=== PATIENT | female | born 1985 | race Caucasian/White ===

== ENCOUNTER 2017-02-20 09:23 | Emergency (ER) | payer MEDICAID, OTHER ==
[~2017-02-20] VITALS: Ht 167.6 cm; Wt 50.0 kg
[~2017-02-20 09:23] MED LIST: ALBU6.7H INH; AMOX875 PO; CORTIS10A LEFT EAR; DOXY100T PO; MMW SSP; PRED20 PO; TYLE500T PO; ZOFR4TAB3 SL
[2017-02-20 09:25] VITALS: BP 115/65; PULSE 82; RESP 20; TEMP 97.6; O2SAT 100
--- NOTE | 2017-02-20 10:26 | PD ---
HPI Chief Complaint: Dizziness Time Seen by Provider: 10:21 Travel History International Travel<30 days: No Contact w/Intl Traveler<30days: No Traveled to known affect area: No History of Present Illness HPI Patient is a 31-year-old female presenting to the chart for evaluation of dizziness. Patient states it started in the middle of the night, he continued be present upon awakening this morning. She states that she is mildly nauseated due to the dizziness. Patient reports having head congestion and right ear pressure. She has a history of the same. She denies any fever, chills, chest pain, shortness of breath, vomiting, diarrhea. Her last menstrual period ended 2 days ago, she denies any significant past medical history or surgical history. She has no primary care provider. [facility] Past Medical History Diminished Hearing: No Headaches: Yes Neurologic: Yes (vertigo) Reproductive: Yes Tetanus Vaccination: > 5 Years Influenza Vaccination: No ?: Not LMP: 02/16/17 Past Surgical History Surgical History: No Previous Surgery Social History Alcohol Use: No Tobacco Use: No Substance Use: No Allergies-Medications (Allergen,Severity, Reaction): Coded Allergies: Ibuprofen (Verified Allergy, Severe, SWELLING, ITCHING, 02/20/17) Reported Meds & Prescriptions Reported Meds & Active Scripts Active No Active Prescriptions or Reported Medications Review of Systems Except as stated in HPI: all other systems reviewed are Neg General / Constitutional: No: Fever, Chills Eyes: No: Diploplia, Blurred Vision, Visual changes HENT: Positive: Congestion, Earache (pressure in right ear), No: Headaches Cardiovascular: No: Chest Pain or Discomfort, Palpitations, Diaphoresis Respiratory: No: Shortness of Breath Gastrointestinal: Positive: Nausea, No: Vomiting, Diarrhea, Abdominal Pain Neurologic: Positive: Dizziness, No: Weakness, Syncope, Focal Abnormalities Physical Exam Narrative GENERAL: Thin, well-developed, alert female. Resting comfortably in no acute distress. SKIN: Focused skin assessment warm/dry. HEAD: Atraumatic. Normocephalic. EYES: Pupils equal and round. No scleral icterus. No injection or drainage. ENT: No nasal bleeding or discharge. Mucous membranes pink and moist. Right tympanic membrane is dull, cloudy. No erythema noted. NECK: Trachea midline. No JVD. CARDIOVASCULAR: Regular rate and rhythm. No murmur appreciated. RESPIRATORY: No accessory muscle use. Clear to auscultation. Breath sounds equal bilaterally. GASTROINTESTINAL: Abdomen soft, non-tender, nondistended. Hepatic and splenic margins not palpable. MUSCULOSKELETAL: No obvious deformities. No clubbing. No cyanosis. No edema. NEUROLOGICAL: Awake and alert. No obvious cranial nerve deficits. Motor grossly within normal limits. Normal speech. PSYCHIATRIC: Appropriate mood and affect; insight and judgment normal. Data Data Last Documented VS Vital Signs Date Time Temp Pulse Resp B/P Pulse Ox O2 Delivery O2 Flow Rate FiO2 02/20/17 10:27 76 16 100/63 77 16 102/64 79 18 101/65 02/20/17 09:45 100 Room Air 02/20/17 09:25 97.6 Orders Meclizine (Antivert) (02/20/17 10:30) Orthostatic Vital Signs (02/20/17 10:20) Ondansetron Odt (Zofran Odt) (02/20/17 10:30) MDM Medical Decision Making Medical Screen Exam Complete: Yes Emergency Medical Condition: Yes Interpretation(s) Vital Signs Date Time Temp Pulse Resp B/P Pulse Ox O2 Delivery O2 Flow Rate FiO2 02/20/17 09:45 17 100 Room Air 02/20/17 09:25 97.6 82 20 115/65 100 Room Air Differential Diagnosis Effusion versus sinusitis versus otitis media versus vertigo versus other Narrative Course Patient is a 31-year-old female presenting to emergency room for evaluation of dizziness that started in the middle the night and was present upon awakening morning. Patient has history of the same. Patient states in the past it has resolved on its own, she would lay in bed until the episode resolved itself. Patient be given meclizine and Zofran now. Vital signs are stable, she is neurologically intact. Orthostatic vital signs are normal. Patient will be discharged home with meclizine, Zofran, Flonase, Sudafed. She was educated regarding the Maru maneuver. She is encouraged to follow-up with her primary doctor. She was advised to return to emergency department immediately for any new or worsening symptoms. Patient verbalized understanding of these instructions. Patient is stable for discharge. Diagnosis Primary Impression: Vertigo Referrals: Primary Care Physician Patient Instructions: Benign Paroxysmal Positional Vertigo (ED), Dizziness (ED) , General Instructions Additional Instructions: Follow-up with your primary doctor Return to emergency department immediately for any new or worsening symptoms Take medications as directed Med/Other Pt SpecificInfo: Prescription(s) given Scripts Pseudoephedrine (Sudafed)30 Mg Tab30 Mg PO Q6H PRN (NASAL CONGESTION) 5 Days Ref 0 Prov:Gali Soto 02/20/17 Fluticasone Nasal [place] 50 Mcg/Act [id number] Mcg EACH NARE DAILY #1 BOTTLE Ref 0 50 mcg/spray Prov:Gali Soto 02/20/17 Ondansetron Odt (Zofran Odt)4 Mg Tab4 Mg SL Q6HR PRN (Nausea/Vomiting) 5 Days Ref 0 Prov:Gali Soto 02/20/17 Meclizine 25 Mg Tab25 Mg PO TID PRN (VERTIGO) 10 Days Ref 0 Prov:Gali Soto 02/20/17 Disposition: 01 DISCHARGE HOME Condition: Stable Gali Soto Feb 20, 2017 10:26
[2017-02-20 10:27] VITALS: BP_SYST 100; BP_SYST 101; BP_SYST 102; BP_DIAS 63; BP_DIAS 64; BP_DIAS 65; RESP 16; RESP 18
[2017-02-20] MEDS ORDERED: ONDANSETRON ODT 4 MG TAB PO ONE (10:30)
[2017-02-20] MEDS ORDERED: MECLIZINE HCL 25 MG TAB PO ONE (10:30)
[2017-02-20] MEDS ORDERED: FLUT50SP EACH NARE (11:10)
[2017-02-20] MEDS ORDERED: MECL-62 PO (11:10)
[2017-02-20] MEDS ORDERED: SUDA30TA2 PO (11:10)
[2017-02-20] MEDS ORDERED: ZOFR4TAB3 SL (11:10)
[2017-02-20 11:39] VITALS: BP 116/71; TEMP 97.8
== END 2017-02-20 11:39 | disposition home or self-care (01) ==
LOC: NEPD 09:23
DX: R42 Dizziness and giddiness (principal); R11.0 Nausea
CPT/HCPCS: 99283

== ENCOUNTER 2017-07-24 11:44 | Emergency (ER) | payer MEDICAID ==
[~2017-07-24] VITALS: Ht 167.6 cm; Wt 50.0 kg
[~2017-07-24 11:44] MED LIST changes: -ALBU6.7H INH; -AMOX875 PO; -CORTIS10A LEFT EAR; -DOXY100T PO; +FLUT50SP EACH NARE; +MECL-62 PO; -MMW SSP; -PRED20 PO; +SUDA30TA2 PO; -TYLE500T PO
[2017-07-24 11:47] VITALS: BP 151/81; PULSE 102; RESP 18; TEMP 98.1; O2SAT 100
--- NOTE | 2017-07-24 11:54 | PD ---
HPI . Left buttock skin infection for 4 days Chief Complaint: Lump, Cyst, Hernia Time Seen by Provider: 11:54 Travel History International Travel<30 days: No Contact w/Intl Traveler<30days: No Traveled to known affect area: No History of Present Illness HPI 31-year-old female with no significant past medical history here with complaints of a lesion that has been on her buttocks for the past 4 days. Patient says that it initially started with small pustule that was itchy, however it started to get larger and a little bit more red. She denies any fever or chills. She does admit to frequently scratching. Denies . PFSH Past Medical History Diminished Hearing: No Headaches: Yes Neurologic: Yes (vertigo) Reproductive: Yes ?: Not Social History Alcohol Use: No Tobacco Use: No Substance Use: No Allergies-Medications (Allergen,Severity, Reaction): Coded Allergies: ibuprofen (Verified Allergy, Severe, SWELLING, ITCHING, 07/24/17) Reported Meds & Prescriptions Reported Meds & Active Scripts Active Bactrim DS (Sulfamethoxazole-Trimethoprim) 800-160 Mg Tab 1 Tab PO BID Sudafed (Pseudoephedrine HCl) 30 Mg Tab 30 Mg PO Q6H PRN 5 Days Fluticasone Nasal [place] 50 Mcg/Act Naspr 100 Mcg EACH NARE DAILY 50 mcg/spray Zofran Odt (Ondansetron Odt) 4 Mg Tab 4 Mg SL Q6HR PRN 5 Days Meclizine (Meclizine HCl) 25 Mg Tab 25 Mg PO TID PRN 10 Days Review of Systems General / Constitutional: No: Fever Eyes: No: Visual changes HENT: No: Headaches Cardiovascular: No: Chest Pain or Discomfort Respiratory: No: Shortness of Breath Gastrointestinal: No: Abdominal Pain Genitourinary: No: Dysuria Musculoskeletal: No: Pain Skin: Positive Other (buttocks lesion), No Rash Neurologic: No: Weakness Psychiatric: No: Depression Endocrine: No: Polydipsia Hematologic/Lymphatic: No: Easy Bruising Physical Exam Narrative GENERAL: AAO x 3, no acute distress, Well-nourished, well-developed patient. SKIN: Warm and dry. No visible rashes or bruising. Left buttocks small area of induration measuring approximately 1.5 cm with a surrounding zone of inflammation approximately extending an additional centimeter. There is no fluctuance or drainage present. This is not a drainable abscess. HEAD: Normocephalic and atraumatic. EYES: No scleral icterus. No injection or drainage. ENT: No nasal drainage noted. Mucous membranes pink. Airway patent. NECK: Supple, trachea midline. No JVD. No Lymphadenopathy CARDIOVASCULAR: Regular rate and rhythm without murmurs, gallops, or rubs. RESPIRATORY: Breath sounds equal bilaterally. No accessory muscle use. No rhonchi or rales. GASTROINTESTINAL visual inspection normal EXTREMITIES: No cyanosis or edema. BACK: No obvious deformity. NEURO: CN II-12 intact, PSYCH: AAO x 3, normal affect. Data Data Last Documented VS Vital Signs Date Time Temp Pulse Resp B/P (MAP) Pulse Ox O2 Delivery O2 Flow Rate FiO2 07/24/17 12:08 07/24/17 11:47 98.1 102 18 100 Room Air MDM Medical Decision Making Medical Screen Exam Complete: Yes Emergency Medical Condition: Yes Medical Record Reviewed: Yes Differential Diagnosis cellulitis, less likely abscess, less likely shingles Narrative Course 31 yr old female here with a localized left buttocks cellulitis. This is not a drainable abscess. I do not recommend further workup or treatment as I do not suspect widespread infection. HR on exam 92 I have provided patient with Bactrim. I recommend f/u. Return to the ED for worsening symptoms. Patient verbalized understanding of instructions, questions were answered, and thanked me for their care. I advised them if their condition worsens, please return to the nearest emergency room for further care. Diagnosis Primary Impression: Cellulitis of buttock, left Patient Instructions: General Instructions Additional Instructions: Keep area clean and dry. Watch for signs of infection: fever, redness, swelling, warmth, pus or drainage , red streaks around the cut, and increased pain from the area. Please return to emergency department if your symptoms return or worsen. Follow up with your primary care provider. Take medications as prescribed. Med/Other Pt SpecificInfo: Prescription(s) given Scripts Sulfamethoxazole-Trimethoprim (Bactrim DS) 800-160 Mg Tab 1 TAB PO BID for Infection, #20 TAB 0 Refills Prov: Giovani Gamble MD 07/24/17 Disposition: 01 DISCHARGE HOME Condition: Stable Chayito Delaney Jul 24, 2017 11:54
[2017-07-24] MEDS ORDERED: BACT800T5 PO (11:57)
== END 2017-07-24 12:12 | disposition home or self-care (01) ==
LOC: NEPK 11:44
DX: L03.317 Cellulitis of buttock (principal)
CPT/HCPCS: 99283

== ENCOUNTER 2017-07-27 18:29 | Emergency (ER) | payer SELFPAY ==
[~2017-07-27] VITALS: Ht 167.6 cm; Wt 48.0 kg
[~2017-07-27 18:29] MED LIST changes: +BACT800T5 PO
[2017-07-27 18:31] VITALS: BP 120/64; PULSE 86; RESP 20; TEMP 98.3; O2SAT 100
[2017-07-27] MEDS ORDERED: CLEO300C2 PO (20:33)
--- NOTE | 2017-07-27 20:38 | PD ---
HPI Chief Complaint: Skin Problem Time Seen by Provider: 20:27 Travel History International Travel<30 days: No Contact w/Intl Traveler<30days: No Traveled to known affect area: No History of Present Illness HPI 31-year-old white female presents to emergency department with a abscess to her left buttocks. She was seen in the emergency department last week and was given prescription for Bactrim. She states that the area is opened up and started to drain. She is also now developed a second lesion on her right buttocks. Symptoms are moderate. She denies any fever or chills. She states actually the pain is improved after it open. History of skin infections in the past. PFSH Past Medical History Narrative Medical Abscesses Diminished Hearing: No Headaches: Yes Neurologic: Yes (vertigo) Reproductive: Yes Immunizations Current: Yes Tetanus Vaccination: Unknown Influenza Vaccination: No ?: Not : 4 Para: 3 Past Surgical History Other Surgery: Yes (TEETH REMOVED) Social History Alcohol Use: No Tobacco Use: No Substance Use: No Allergies-Medications (Allergen,Severity, Reaction): Coded Allergies: ibuprofen (Verified Allergy, Severe, SWELLING, ITCHING, 07/27/17) Reported Meds & Prescriptions Reported Meds & Active Scripts Active Cleocin (Clindamycin HCl) 300 Mg Cap 300 Mg PO Q6H 10 Days Bactrim DS (Sulfamethoxazole-Trimethoprim) 800-160 Mg Tab 1 Tab PO BID Review of Systems Except as stated in HPI: all other systems reviewed are Neg Physical Exam Narrative GENERAL: This is a well-nourished, well-developed patient, in no apparent distress. Patient's examined with Jackie the nurse present. SKIN: Patient has an open draining abscess to her left buttocks. This measures 2 x 2 centimeters. There is no surrounding cellulitis. Patient has good granulation tissues centrally. There is also a small 1 cm developing abscess to the right buttocks. Ecchymoses or lesions. Warm and dry. HEAD: Atraumatic. Normocephalic. EYES: PERRL, EOMI, no discharge or injection. No scleral icterus. EARS: Clear NOSE: Nasal turbinates appear normal. THROAT: Mucosa pink and moist. Airway patent. NECK: Trachea midline. supple, moves head freely. LUNGS: Clear to auscultation. CV: Regular in rhythm. ABDOMEN: Soft nontender. EXT: No clubbing cyanosis or edema. Data Data Last Documented VS Vital Signs Date Time Temp Pulse Resp B/P (MAP) Pulse Ox O2 Delivery O2 Flow Rate FiO2 07/27/17 18:31 98.3 86 20 120/64 (82) 100 Room Air MDM Medical Decision Making Medical Screen Exam Complete: Yes Emergency Medical Condition: Yes Medical Record Reviewed: Yes Differential Diagnosis MDM: High Differential diagnoses: Abscess, folliculitis, cellulitis, lymphangitis, abrasion, contact dermatitis Narrative Course Patient has an open draining abscess to her left buttocks with a new one developing on her right buttocks. We will add and clindamycin. Diagnosis Primary Impression: Left buttock abscess Patient Instructions: General Instructions Additional Instructions: Rest. Elevation. keep clean and dry. Sits baths 3 times daily Daily wound care with soap, water and Neosporin. Continue Bactrim. Start clindamycin Follow-up with a primary care doctor in one week. Return to the ER for any problems. Med/Other Pt SpecificInfo: Prescription(s) given, Wound Care Scripts Clindamycin (Cleocin) 300 Mg Cap 300 MG PO Q6H for Infection for 10 Days, #40 CAP 0 Refills Prov: Jaswant Worthy MD 07/27/17 Disposition: 01 DISCHARGE HOME Condition: Stable Gabe Goodrich Jul 27, 2017 20:38
== END 2017-07-27 20:46 | disposition home or self-care (01) ==
LOC: NEPD 18:29
DX: L02.31 Cutaneous abscess of buttock (principal)
CPT/HCPCS: 99283

== ENCOUNTER 2017-10-28 20:19 | Emergency (ER) | payer OTHER ==
[~2017-10-28 20:19] MED LIST changes: +CLEO300C2 PO; -FLUT50SP EACH NARE; -MECL-62 PO; -SUDA30TA2 PO; -ZOFR4TAB3 SL
[2017-10-28 20:21] VITALS: BP 137/78; PULSE 97; RESP 16; TEMP 98.7; O2SAT 100
--- NOTE | 2017-10-28 20:55 | PD ---
HPI Chief Complaint: GI Complaint Time Seen by Provider: 20:39 Travel History International Travel<30 days: No Contact w/Intl Traveler<30days: No Traveled to known affect area: No History of Present Illness HPI 31-year-old female presents to the ED complaining of heartburn and a "acidic feeling" in the middle of her chest since Thursday. Patient states that she took her first dose of clindamycin and developed this burning in the middle of her chest. Patient says that she took the medication the next day as well and had the same feeling. Patient states that she has an acidic feeling that is worse when laying down. Patient states she has tried antacids and Pepcid without significant relief. Patient denies vomiting, nausea, abdominal pain, melena, hematochezia. Patient denies chronic medical issues or chronic medication use. Patient does not have a history of reflux. PFSH Past Medical History Diminished Hearing: No Headaches: Yes Neurologic: Yes (vertigo) Reproductive: Yes Immunizations Current: Yes ?: Not LMP: Now : 4 Para: 3 Past Surgical History Other Surgery: Yes (TEETH REMOVED) Social History Alcohol Use: No Tobacco Use: No Substance Use: No Allergies-Medications (Allergen,Severity, Reaction): Coded Allergies: ibuprofen (Verified Allergy, Severe, SWELLING, ITCHING, 07/27/17) Reported Meds & Prescriptions Reported Meds & Active Scripts Active No Active Prescriptions or Reported Medications Review of Systems Except as stated in HPI: all other systems reviewed are Neg Physical Exam Narrative GENERAL: Well-nourished, well-developed patient. SKIN: Focused skin assessment warm/dry. HEAD: Normocephalic. EYES: No scleral icterus. No injection or drainage. NECK: Supple, trachea midline. No JVD or lymphadenopathy. CARDIOVASCULAR: Regular rate and rhythm without murmurs, gallops, or rubs. RESPIRATORY: Breath sounds equal bilaterally. No accessory muscle use. GASTROINTESTINAL: Abdomen soft, non-tender, nondistended. MUSCULOSKELETAL: No cyanosis, or edema. BACK: Nontender without obvious deformity. No CVA tenderness. Data Data Last Documented VS Vital Signs Date Time Temp Pulse Resp B/P (MAP) Pulse Ox O2 Delivery O2 Flow Rate FiO2 10/28/17 21:45 10/28/17 20:21 98.7 97 16 100 Room Air Orders Orders Al-Mag Hy-Si 40-40-4 Mg/Ml Liq (Mag-Al P (10/28/17 21:00) Lidocaine 2% Viscous (Xylocaine 2% Visco (10/28/17 21:00) Electrocardiogram (10/28/17 ) Ed Discharge Order (10/28/17 21:42) [facility] Medical Decision Making Medical Screen Exam Complete: Yes Emergency Medical Condition: Yes Differential Diagnosis Gastritis, esophagitis, reflux Narrative Course 31-year-old female presents to the ED complaining of heartburn and a "acidic feeling" in the middle of her chest since Thursday. Patient states that she took her first dose of clindamycin and developed this burning in the middle of her chest. Patient says that she took the medication the next day as well and had the same feeling. Patient states that she has an acidic feeling that is worse when laying down. Patient states she has tried antacids and Pepcid without significant relief. Patient denies vomiting, nausea, abdominal pain, melena, hematochezia. Patient denies chronic medical issues or chronic medication use. Patient does not have a history of reflux. Vital signs stable. Physical exam essentially unremarkable. Maalox and lidocaine for GI cocktail. EKG and dispo pending as of transfer of care to Saul Dewey PA-C Diagnosis Primary Impression: GERD (gastroesophageal reflux disease) Qualified Codes: K21.0 - Gastro-esophageal reflux disease with esophagitis Referrals: [facility] Additional Instructions: Follow up with your primary care physician within 2-3 days. If your symptoms persist or worsen, return to the emergency department. Use Maalox per package instructions for your discomfort Scripts No Active Prescriptions or Reported Meds Disposition: 01 DISCHARGE HOME Condition: Stable Rosa Carpenter Oct 28, 2017 20:55
[2017-10-28] MEDS ORDERED: LIDOCAINE VISCOUS 2% SOLN 15 ML UDC SWISH-SWAL PRN (21:00)
[2017-10-28] MEDS ORDERED: ALUMINUM/MAGNESIUM/SIMETH 30 ML CUP PO ONE (21:00)
--- NOTE | 2017-10-28 21:45 | PD ---
Physical Exam Date Seen by Provider: Oct 28, 2017 Time Seen by Provider: 21:43 Narrative GENERAL: Well-developed, well-nourished in no acute distress. Nontoxic appearing. HEAD: Normocephalic, atraumatic. EYES: Pupils equal round and reactive. Extraocular motions intact. No scleral icterus. No injection or drainage. ENT: TMs clear without erythema. The external auditory canals clear. Nose: clear . Posterior pharynx is pink and moist. No tonsillar edema or exudate. Uvula midline. Airway patent. NECK: Trachea midline.Supple, nontender, moves head freely. No central bony tenderness or spasm. CARDIOVASCULAR: Regular rate and rhythm without murmurs, gallops, or rubs. RESPIRATORY: Clear to auscultation. Breath sounds equal bilaterally. No wheezes , rales, or rhonchi. GASTROINTESTINAL: Abdomen soft, non-tender, nondistended. No hepato-splenomegaly , or palpable masses. No guarding. EXTREMITIES: No clubbing, cyanosis, or edema. No joint tenderness, effusion, or edema noted. BACK: Nontender without deformity or crepitance. No flank tenderness. Data Data Last Documented VS Vital Signs Date Time Temp Pulse Resp B/P (MAP) Pulse Ox O2 Delivery O2 Flow Rate FiO2 10/28/17 20:21 98.7 97 16 137/78 (97) 100 Room Air Orders Orders Al-Mag Hy-Si 40-40-4 Mg/Ml Liq (Mag-Al P (10/28/17 21:00) Lidocaine 2% Viscous (Xylocaine 2% Visco (10/28/17 21:00) Electrocardiogram (10/28/17 ) Ed Discharge Order (10/28/17 21:42) [facility] Medical Record Reviewed: Yes Supervised Visit with KUNAL: No Interpretation(s) EKG shows NSR, no ST elevation or depression, and no arrhythmias. No significant T-wave inversions. Differential Diagnosis Differential diagnoses: Reflux, gastritis, pericarditis Narrative Course Patient's evaluation is unremarkable. Her EKG is normal. Her symptoms are of a reflux or gastritis. She is discharged with proton pump inhibitor. Diagnosis Primary Impression: GERD (gastroesophageal reflux disease) Qualified Codes: K21.0 - Gastro-esophageal reflux disease with esophagitis Referrals: [facility] Additional Instruction: Follow up with your primary care physician within 1 week. Take 2 Pepcid AC twice daily. If your symptoms persist or worsen, return to the emergency department. Use Maalox per package instructions for your discomfort Scripts No Active Prescriptions or Reported Meds Disposition: 01 DISCHARGE HOME Condition: Stable Gabe Goodrich Oct 28, 2017 21:44
--- NOTE | 2017-10-29 15:45 | EKG ---
Date Performed: 10/28/2017 Time Performed: 21:21:11 PTAGE: 31 years EKG: Sinus rhythm NORMAL ECG PREVIOUS TRACING : 08/17/2000 02.14 Compared to prior tracing no significant change DOCTOR: Tonny Tinajero Interpretating Date/Time 10/29/2017 15:44:57
== END 2017-10-28 21:48 | disposition home or self-care (01) ==
LOC: NEPK 20:19
DX: K21.9 Gastro-esophageal reflux disease without esophagitis (principal); Z88.6 Allergy status to analgesic agent
CPT/HCPCS: 93005

== ENCOUNTER 2018-08-18 19:02 | Inpatient (IN) ==
[2018-08-18] MEDS ORDERED: Sod Chloride 0.9% Inj 1,000 ML IV.SIG SCH (20:30)
[2018-08-18] MEDS ORDERED: Vancomycin Inj 1,000 MG in Sodium Chlor 0.9% Inj 250 ML IV.SIG ONE (20:30)
[2018-08-18 21:35] LABS: Baso % (Auto) 0.3 % (0.0-2.0); Eos # (Auto) 0.1 th/mm3 (0.0-0.4); Eos % (Auto) 0.5 % (0.0-4.0); Hematocrit 41.2 % (35.0-46.0); Hemoglobin 13.9 gm/dL (11.6-15.3); Lymph # (Auto) 1.4 th/mm3 (1.0-4.8); Lymph % (Auto) 12.8 % (9.0-44.0); Mean Corpuscular HGB Conc 33.8 % (32.0-36.0); Mean Corpuscular Hemoglobin 29.6 pg (27.0-34.0); Mean Corpuscular Volume 87.6 fL (80.0-100.0); Mono # (Auto) 0.9 th/mm3 (0.0-0.9); Mono % (Auto) 8.3 % (0.0-8.0); Neut # (Auto) 8.4 th/mm3 (1.8-7.7); Neut % (Auto) 78.1 % (16.0-70.0); Platelet Count 164 th/mm3 (150-450); Red Cell Distribution Width 13.6 % (11.6-17.2); White Blood Count 10.8 th/mm3 (4.0-11.0)
[2018-08-18 21:48] LABS: Calcium 8.6 mg/dL (8.5-10.1); Carbon Dioxide 26.7 meq/L (21.0-32.0); Potassium 3.2 meq/L (3.5-5.1)
--- NOTE | 2018-08-18 22:26 | ECG ---
Date Performed: 08/18/2018 Time Performed: 20:20:23 PTAGE: 32 years EKG: SINUS TACHYCARDIA ABNORMAL RHYTHM ECG PREVIOUS TRACING : 10/28/2017 21.21 No significant change from previous tracing noted. DOCTOR: Shawn Zamora Interpretating Date/Time 08/18/2018 22:24:56
--- NOTE | 2018-08-18 22:58 | CT ---
EXAM DATE: 08/18/2018 9:20 PM EDT AGE/SEX: 32 years / Female INDICATIONS: Right eye swelling fro six days. CLINICAL DATA: This is the patient's initial encounter. Patient reports that signs and symptoms have been present for 4 - 6 days and indicates a pain score of 5/10. MEDICAL/SURGICAL HISTORY: None. None. RADIATION DOSE: 41.56 CTDI (mGy) COMPARISON: No prior exams available for comparison. TECHNIQUE: Contiguous images in the axial and coronal planes were obtained using helical multirow de tector technique with 67 ml Omnipaque 350 (iohexol) nonionic water-soluble contrast as a single exam dose. Using automated exposure control and adjustment of the mA and/or kV according to patient size , radiation dose was kept as low as reasonably achievable to obtain optimal diagnostic quality images . DICOM format image data is available electronically for review and comparison. FINDINGS: Orbits: The orbital and infraorbital osseous structures are intact. The retroconal structures have a normal configuration. No radiopaque foreign bodies are seen. Nasal Bone: The nasal bone and maxillary spine are intact. Zygomatic Arches: Symmetric without evidence of fracture. Sinuses: The maxillary, ethmoid and frontal sinuses are intact. No air-fluid levels seen. Nasal Cavity: The nasal septum is intact and midline. The lacrimal ducts are intact. There is a con hannah bullosa configuration to the middle turbinates. Soft Tissues: There is right periorbital preseptal soft tissue swelling. No radiopaque foreign rosaura s seen. Intracranial: No intracranial air seen. Cribriform Plate: Grossly intact. Post Contrast: No abnormal areas of enhancement seen. CONCLUSION: Right periorbital preseptal soft tissue swelling. Electronically signed by: Garth Welch MD 08/18/2018 10:56 PM EDT
[2018-08-18] MEDS ORDERED: Clindamycin 900 mg/NS Premix 900 MG/50 ML PIGGYBACK IV.SIG ONE (23:44)
[2018-08-19] MEDS ORDERED: Bisacodyl 10 MG Supp RECTAL PRN (00:20)
--- NOTE | 2018-08-19 00:27 | ED ---
HPI General Chief complaint: Eye Problems Stated complaint: Eye complaint Time Seen by Provider: 08/18/18 21:04 Source: patient Mode of arrival: ambulatory Limitations: no limitations History of Present Illness HPI narrative: 32-year-old female presents to the emergency department by private transportation the care of her father for evaluation of progressively worsening redness and swelling of the soft tissue about the right eye affecting the right upper lid and right lower lid. Patient states symptoms began a few days ago with a sore on the lateral aspect of the right eye in the soft tissue area. Patient states that the area started to worsen and increase in size felt some subjective fever no chills denies any vision disturbance denies any change in vision no blurred vision double vision loss of vision and no eyeball pain on range of motion of the globe. Patient does wear eyeglasses. Patient states that she went to urgent care and was started on Bactrim but symptoms persisted so went to see her primary care provider who started her on doxycycline patient is taken 2 doses of the medication contacted her physician as she felt her symptoms were worsening of her to come to the emergency room for admission. Patient was seen by her primary care provider today who told her that she needed to come to the hospital to be admitted for IV antibiotics but the patient did not want to be admitted to the hospital so initially declined and had an appointment for tomorrow morning to see her primary but due to worsening of symptoms presents now for further evaluation. complaint: Reports rash and abscess/boil Onset (ago): day(s) Location: Reports face (Right face periorbital right eye) Severity: moderate Severity scale (1-10): 5 Quality: Reports burning, aching, dull and constant Pain Consistency: constant Relieving factors: none Exacerbating factors: palpation Context: Reports other ( right lateral face right lateral periorbital region.) Associated symptoms: Reports fever (Subjective) Treatments prior to arrival: Reports antibiotic (Bactrim and doxycycline) Related Data Home Medications Medication Instructions Recorded Confirmed doxycycline hyclate 100 mg PO BID 08/18/18 08/18/18 sulfamethoxazole-trimethoprim 1 tab PO Q12H 08/18/18 08/18/18 [Bactrim DS] Allergies Allergy/AdvReac Type Severity Reaction Status Date / Time ibuprofen Allergy Severe SWELLING, Verified 08/18/18 19:46 ITCHING Review of Systems ROS: all other systems reviewed are negative [facility] Medical History Medical History Abscess, eyelid (Acute) Surgical History Surgical History No history of previous surgery (Acute) Social History Social History Substance History: No History of Abuse Second Hand Smoke Exposure: No Smoking Status: Never smoker How Often Do You Have a Drink Containing Alcohol: Never Recent Travel in [facility] within the Last 8 Weeks: No Recent Out of Country Travel within the Last 8 Weeks: No Immunization History Tetanus Immunization: <5 Years Exam Narrative Exam Narrative: GENERAL: Well-nourished, well-developed patient. GCS 15. SKIN: Focused skin assessment warm/dry. HEAD: Normocephalic. EYES: No scleral icterus. No injection or drainage. Bilateral pupils equal round reactive to light extraocular muscles intact no gross hyphema no fluorescein uptake no dendritic changes no purulent drainage from the eye no conjunctival injection no ecchymosis. Attention right periorbital upper and lower lid edema erythema tenderness to palpation small area of scab without fluctuance or purulent drainage to the lateral aspect lateral periorbital region of the right eye. NECK: Supple, trachea midline. No JVD or lymphadenopathy. CARDIOVASCULAR: Increased regular rate and rhythm without murmurs, gallops, or rubs. RESPIRATORY: Breath sounds equal bilaterally. No accessory muscle use. GASTROINTESTINAL: Abdomen soft, non-tender, nondistended. MUSCULOSKELETAL: No cyanosis, or edema. BACK: Nontender without obvious deformity. No CVA tenderness. Course Initial Documented Vital Signs Temperature 99.2 F 08/18/18 19:39 Pulse Rate 120 H 08/18/18 19:39 Respiratory Rate 20 08/18/18 19:39 Blood Pressure 122/70 08/18/18 19:39 Pulse Oximetry 100 08/18/18 19:39 Last Documented Vital Signs Temperature 99.3 F 08/18/18 19:46 Pulse Rate 100 H 08/18/18 23:00 Respiratory Rate 18 08/18/18 23:00 Blood Pressure 112/68 08/18/18 23:00 Pulse Oximetry 100 08/18/18 23:00 Medical Decision Making [facility] Narrative Medical decision making narrative: 32-year-old female with several days of progressively worsening periorbital soft tissue swelling redness warmth and tenderness without purulent drainage no vision disturbance patient has been placed on Bactrim and doxycycline without improvement presents now for further evaluation. IV access obtained specimens collected and sent for resulting. Patient presumptively administered vancomycin 1 g IV piggyback Informed patient having erythematous reaction to vancomycin which was stopped. Suspect patient had Leandro reaction unable to immediately attend to the patient due to emergency with another patient. Symptoms improved quickly after discontinuing vancomycin Total white cell count is in normal range CT shows evidence of preseptal soft tissue swelling no abscess and lactic acid is normal heart rate has improved after IV fluids. Patient with 2 days of oral antibiotic with worsening symptoms concerning for failed outpatient therapy will continue patient on IV antibiotics and admit to medicine service patient's case discussed with on-call physician Dr. Barakat who request patient to be admitted to Dr. Orr service. Medical Screen Exam Complete: Yes Emergency Medical Condition: Yes Differential Diagnosis Differential Diagnosis: Periorbital abscess periorbital cellulitis preseptal cellulitis Medical Records Medical records reviewed: Yes I reviewed the patient's medical records. Lab Data Lab results reviewed: Yes I reviewed the patient's lab results. Result diagrams: 08/18/18 20:45 08/18/18 20:45 POC Results POC Urine Results Negative Lab Results 08/18/18 08/18/18 08/18/18 Range/Units 20:45 20:45 23:17 WBC 10.8 (4.0-11.0) th/mm3 RBC 4.70 (4.00-5.30) mil/mm3 Hgb 13.9 (11.6-15.3) gm/dL Hct 41.2 (35.0-46.0) % MCV 87.6 (80.0-100.0) fL MCH 29.6 (27.0-34.0) pg MCHC 33.8 (32.0-36.0) % RDW 13.6 (11.6-17.2) % Plt Count 164 (150-450) th/mm3 MPV 10.0 (7.0-11.0) fL Neut % (Auto) 78.1 H (16.0-70.0) % Lymph % (Auto) 12.8 (9.0-44.0) % [place] % (Auto) 8.3 H (0.0-8.0) % Eos % (Auto) 0.5 (0.0-4.0) % Baso % (Auto) 0.3 (0.0-2.0) % Neut # (Auto) 8.4 H (1.8-7.7) th/mm3 Lymph # (Auto) 1.4 (1.0-4.8) th/mm3 [place] # (Auto) 0.9 (0.0-0.9) th/mm3 Eos # (Auto) 0.1 (0.0-0.4) th/mm3 Baso # (Auto) 0.0 (0.0-0.2) th/mm3 WBC Differential . Differential Comment Auto diff final Sodium 139 (136-145) meq/L Potassium 3.2 L (3.5-5.1) meq/L Chloride 105 (98-107) meq/L Carbon Dioxide 26.7 (21.0-32.0) meq/L Anion Gap 7 (5-15) meq/L BUN 7 (7-18) mg/dL Creatinine 0.87 (0.50-1.00) mg/dL Estimated GFR 76 L (>89) mL/min Random Glucose 118 H (74-106) mg/dL Lactic Acid 1.3 (0.4-2.0) mmol/L Calcium 8.6 (8.5-10.1) mg/dL Imaging Data Radiologist's impression: Face CT 08/18/18 20:30 CONCLUSION: Right periorbital preseptal soft tissue swelling. ECG Data EKG Prior to Arrival: No Prior ECG tracings: not available for review Interpretation: EKG sinus tachycardia rate 105 normal axis and intervals no acute ST elevation injury pattern or ectopy noted Discharge Plan Discharge Disposition Patient Disposition: 30 Still Patient Discharge Condition Condition: Stable Discharge Details Diagnosis: Periorbital cellulitis of right eye Physicians Team ED Provider: Nadine Jacobo Primary Care Provider: Svetlana Temple Attending Provider: Ed Orr Discharge Interventions Interventions: Vital Signs Last Done: 08/18/18 23:00 Status ED Status: Admitted Observation Patient
[2018-08-19] MEDS: Acetaminophen 325 MG Tablet PO PRN ×2 (04:29→09:11)
[2018-08-19] MEDS: Clindamycin 900 mg/NS Premix 900 MG/50 ML PIGGYBACK IV.SIG SCH ×3 (08:58→23:05)
[2018-08-19] MEDS: Senna/Docusate Sodium 8.6/50 MG Tablet PO SCH ×2 (08:59→20:38)
--- NOTE | 2018-08-19 09:42 | P.HP ---
<Karishma Cortez W - Last Filed: 08/19/18 16:39> History of Present Illness Primary Care Physician: Svetlana Temple Chief Complaint: Left eye erythema and edema times 6 days History of Present Illness: This is a 32-year-old female patient with past medical history which includes sciatica, vitamin D deficiency and recurrent boils. Patient reports approximately 6 days ago she developed a pimple near her right eye she did try to pop it and since then the eyes become extremely swollen red and painful. Patient went to [facility] [place] and was prescribed cefazolin 500 mg 4 times daily times 10 days with Bactrim twice daily times 10 days. She is also been using warm compresses. Patient endorses low-grade fever 100.5. Patient was seen by primary care provider Dr. Temple 08/17/2018. Patient continued to have significant periorbital swelling and erythema which extended from the upper right eyelid and several centimeters laterally to the right eye. Antibiotics were switched to Keflex and doxycycline. Patient was rechecked 09/2018 by PCP and referred to emergency department for further evaluation and possibly IV antibiotics. Patient presented to the emergency department 08/18/2018 proximally 9 PM she was started on IV vancomycin and IV clindamycin. Patient unable to tolerate vancomycin, patient reports itching on scalp and back with vancomycin. Patient feels that the area around the eye has gotten, "a little better, " since she arrived last night. Patient reports the right eye area is no longer painful and the edema has decrease slightly. Patient denies changes in vision, blurry vision, double vision, difficulty with eye movement. Patient also denies chills nausea vomiting diarrhea constipation shortness of breath or chest pain PMH: sciatica, vitamin D deficiency and recurrent boils PSxH: Oral surgery for tooth extraction FMH: Reviewed and noncontributory Social history: has 4 children Denies EtOH use denies tobacco use denies illicit drug use - Diagnosis (1) Periorbital cellulitis of right eye Review of Systems All other systems reviewed negative except as stated in HPI PMFSH - History History Provided By: Patient - Medical History Medical History: Medical History (Last Updated 08/18/18 @ 19:45 by Triston Edmonds RN) Abscess, eyelid - Surgical History Surgical History: Surgical History (Last Updated 08/18/18 @ 19:45 by Triston Edmonds RN) No history of previous surgery - Tobacco History Second Hand Smoke Exposure: No Tobacco Use In Past 30 Days: No Smoking Status: Never smoker - Alcohol History How Often Do You Have a Drink Containing Alcohol: Monthly or less - Substance Use History Substance History: No History of Abuse - Travel History Recent Travel in the [place] Within the Last 8 Weeks: No Recent Travel Out of the Country Within the Last 8 Weeks: No - Immunization History Tetanus Immunization: <5 Years Medications and Allergies Allergies Allergy/AdvReac Type Severity Reaction Status Date / Time ibuprofen Allergy Severe SWELLING, Verified 08/18/18 19:46 ITCHING vancomycin Allergy Itching Verified 08/19/18 01:23 Home Medications Medication Instructions Recorded Confirmed Type doxycycline hyclate 100 mg PO BID 08/18/18 08/18/18 History sulfamethoxazole-trimethoprim 1 tab PO Q12H 08/18/18 08/18/18 History [Bactrim DS] Active Medications: Active Medications Acetaminophen (Tylenol) 650 mg PO Q4H PRN PRN Reason: Temp > 100.4 Last Admin: 08/19/18 09:11 Dose: 650 mg Al Hydroxide/Mg Hydroxide (Milk Of Magnesia Liq) 30 ml PO Q12H PRN PRN Reason: Mild Constipation Bisacodyl (Dulcolax Supp) 10 mg RECTAL DAILY PRN PRN Reason: SEVERE CONSITIPATION Sodium Chloride (Ns Inj) 1,000 mls @ 0 mls/hr IV.SIG BOLUS [facility] Last Infusion: 08/18/18 22:22 Dose: Infused Clindamycin/Sodium Chloride (Cleocin 900 Mg/Ns Premix) 900 mg in 50 mls @ 100 mls/hr IV.SIG Q8H PIA Stop: 08/20/18 00:29 Last Admin: 08/19/18 08:58 Dose: 100 mls/hr Lactulose (Lactulose Liq) 30 ml PO DAILY PRN PRN Reason: SEVERE CONSITIPATION Ondansetron HCl (Zofran Inj) 4 mg IV.PUSH Q6H PRN PRN Reason: NAUSEA OR VOMITING Senna/Docusate Sodium (Ashlee-Colace) 1 tab PO BID PIA Last Admin: 08/19/18 08:59 Dose: 1 tab Sennosides (Senokot) 17.2 mg PO Q12H PRN PRN Reason: Moderate Constipation Exam Vital signs: Vital Signs 10/10/18 19:39 08/18/18 19:46 08/18/18 21:24 Temperature 99.2 F 99.3 F Pulse Rate 120 H 101 H 114 H Respiratory Rate 20 18 18 Blood Pressure 122/70 141/84 H 115/72 Pulse Oximetry 100 100 100 08/18/18 22:00 08/18/18 23:00 08/19/18 01:00 Temperature Pulse Rate 88 100 H 88 Respiratory Rate 18 18 18 Blood Pressure 125/71 112/68 Pulse Oximetry 99 100 99 08/19/18 01:51 08/19/18 02:04 08/19/18 04:00 Temperature 99.1 F 99.0 F 98.9 F Pulse Rate 84 93 H 91 H Respiratory Rate 18 19 20 Blood Pressure 101/57 L 107/59 L Pulse Oximetry 97 97 08/19/18 08:32 Temperature 98.1 F Pulse Rate 82 Respiratory Rate 16 Blood Pressure 105/57 L Pulse Oximetry 98 Intake & Output 08/18/18 08/19/18 08/19/18 18:59 06:59 18:59 Intake Total 1125 / 1125 Balance 1125 / 1125 Weight 51.71 kg Intake: IV 1125 / 1125 Cleocin 900 mg/NS Premix 900 mg 50 / 50 In 50 ml @ 100 mls/hr IV.SIG ONCE ONE Rx#:[id number] NS Inj 1,000 ML @ Wide Open IV. 1000 / 1000 SIG BOLUS PIA Rx#:[id number] Vancomycin Inj 1,000 MG In NS 75 / 75 Inj 250 ML @ 250 mls/hr IV.SIG ONCE ONE Rx#:[id number] Other: # Voids 0 Date of Last Bowel Movement 08/18/18 Weight On Admission 51.71 kg Narrative: GENERAL: This is a well-nourished, well-developed patient, in no apparent distress. SKIN/R EYE: Pupils equal round reactive to light and accommodation, extraocular movements intact, significant R periorbital edema and erythema that extends from her right eyelid laterally CARDIOVASCULAR: Regular rate and rhythm RESPIRATORY: Clear to auscultation. Breath sounds equal bilaterally. GASTROINTESTINAL: Abdomen soft, non-tender, nondistended. Normal active bowel sounds MUSCULOSKELETAL: Extremities without clubbing, cyanosis, or edema. NEURO: Alert & Oriented x4 to person, place, time, situation. Moves all ext x4 Results - Labs CBC & Chem 7: 08/18/18 20:45 08/18/18 20:45 Labs: Laboratory Results - last 24 hr 08/18/18 08/18/18 08/18/18 20:45 20:45 23:17 WBC 10.8 RBC 4.70 Hgb 13.9 Hct 41.2 MCV 87.6 MCH 29.6 MCHC 33.8 RDW 13.6 Plt Count 164 MPV 10.0 Neut % (Auto) 78.1 H Lymph % (Auto) 12.8 [place] % (Auto) 8.3 H Eos % (Auto) 0.5 Baso % (Auto) 0.3 Neut # (Auto) 8.4 H Lymph # (Auto) 1.4 [place] # (Auto) 0.9 Eos # (Auto) 0.1 Baso # (Auto) 0.0 WBC Differential . Differential Comment Auto diff final Sodium 139 Potassium 3.2 L Chloride 105 Carbon Dioxide 26.7 Anion Gap 7 BUN 7 Creatinine 0.87 Estimated GFR 76 L Random Glucose 118 H Lactic Acid 1.3 Calcium 8.6 - Imaging Impressions Face CT 08/18/18 20:30 CONCLUSION: Right periorbital preseptal soft tissue swelling. Caprini VTE Risk Assessment Caprini VTE Risk Assessment: No/Low Risk (score <= 1) Caprini Risk Assessment Model: Point Value = 1 Point Value = 2 Point Value = 3 Point Value = 5 Age 41-60 Minor surgery BMI > 25 kg/m2 Swollen legs Varicose veins or History of unexplained or recurrent spontaneous Oral contraceptives or hormone replacement Sepsis (< 1 month) Serious lung disease, including pneumonia (< 1 month) Abnormal pulmonary function Acute myocardial infarction Congestive heart failure (< 1 month) History of inflammatory bowel disease Medical patient at bed rest Age 61-74 Arthroscopic surgery Major open surgery (> 45 min) Laparoscopic surgery (> 45 min) Malignancy Confined to bed (> 72 hours) Immobilizing plaster cast Central venous access Age >= 75 History of VTE Family history of VTE Factor V Leiden Prothrombin [id number] Lupus anticoagulant Anticardiolipin antibodies Elevated serum homocysteine Heparin-induced thrombocytopenia Other congenital or acquired thrombophilia Stroke (< 1 month) Elective arthroplasty Hip, pelvis, or leg fracture Acute spinal cord injury (< 1 month) Prophylaxis Regimen: Total Risk Factor Score Risk Level Prophylaxis Regimen 0-1 Low Early ambulation 2 Moderate Order ONE of the following: *Sequential Compression Device (SCD) *Heparin 5000 units SQ BID 3-4 Higher Order ONE of the following medications: *Heparin 5000 units SQ TID *Enoxaparin/Lovenox 40 mg SQ daily (WT < 150 kg, CrCl > 30 mL/min) *Enoxaparin/Lovenox 30 mg SQ daily (WT < 150 kg, CrCl > 10-29 mL/min) *Enoxaparin/Lovenox 30 mg SQ BID (WT < 150 kg, CrCl > 30 mL/min) AND/OR *Sequential Compression Device (SCD) 5 or more Highest Order ONE of the following medications: *Heparin 5000 units SQ TID (Preferred with Epidurals) *Enoxaparin/Lovenox 40 mg SQ daily (WT < 150 kg, CrCl > 30 mL/min) *Enoxaparin/Lovenox 30 mg SQ daily (WT < 150 kg, CrCl > 10-29 mL/min) *Enoxaparin/Lovenox 30 mg SQ BID (WT < 150 kg, CrCl > 30 mL/min) AND *Sequential Compression Device (SCD) Assessment and Plan - Assessment (1) Periorbital cellulitis of right eye Code(s): L03.213 - Periorbital cellulitis Status: Acute Plan: This is a 32-year-old female patient with past medical history which includes sciatica, vitamin D deficiency and recurrent boils. Patient reports approximately 6 days ago she developed a pimple near her right eye she did try to pop it and since then the eyes become extremely swollen red and painful. Patient went to [facility] [place] and was prescribed Bactrim twice daily times 10 days. She is also been using warm compresses. Patient endorses low- grade fever 100.5. Patient was seen by primary care provider Dr. Temple 2017. Patient continued to have significant periorbital swelling and erythema which extended from the upper right eyelid and several centimeters laterally to the right eye. Antibiotics were switched to Keflex and doxycycline. Patient was rechecked 08/19/2018 by PCP and referred to emergency department for further evaluation and possibly IV antibiotics. Patient presented to the emergency department 08/18/2018 proximally 9 PM she was started on IV vancomycin and IV clindamycin. Patient unable to tolerate vancomycin, patient reports itching on scalp and back with vancomycin. Patient feels that the area around the eye has gotten, "a little better, " since she arrived last night. Patient reports the right eye area is no longer painful and the edema has decrease slightly. - Continue IV clindamycin, if no improvement in 24 hours plan to consult ID - Facial CT reviewed and reveals: Right periorbital preseptal soft tissue swelling. Hypokalemia - Potassium 3.2 - replaced - recheck BMP in AM DVT prophylaxis with SCDs <Ed Orr - Last Filed: 08/20/18 10:21> History of Present Illness Primary Care Physician: Svetlana Temple - Diagnosis (1) Periorbital cellulitis of right eye Inpatient Certification: I certify that the inpatient services were ordered in accordance with Medicare regulations governing the order. This includes certification that hospital inpatient services are reasonable and necessary and in the case of services not specified as inpatient-only under 42 CFR 419.22(n), that they are appropriately provided as inpatient services in accordance to with the 2-midnight benchmark under 43 CFR 412.3(e) [facility] - Medical History Medical History: Medical History (Last Updated 08/18/18 @ 19:45 by Triston Edmonds, ERIKA) Abscess, eyelid - Surgical History Surgical History: Surgical History (Last Updated 08/18/18 @ 19:45 by Triston Edmonds, RN) No history of previous surgery Medications and Allergies Active Medications: Active Medications Acetaminophen (Tylenol) 650 mg PO Q4H PRN PRN Reason: PAIN 1-10 AND FEVER>100.4 Last Admin: 08/19/18 18:34 Dose: 650 mg Al Hydroxide/Mg Hydroxide (Milk Of Magnesia Liq) 30 ml PO Q12H PRN PRN Reason: Mild Constipation Bisacodyl (Dulcolax Supp) 10 mg RECTAL DAILY PRN PRN Reason: SEVERE CONSITIPATION Sodium Chloride (Ns Inj) 1,000 mls @ 0 mls/hr IV.SIG BOLUS PIA Last Infusion: 08/18/18 22:22 Dose: Infused Clindamycin/Sodium Chloride (Cleocin 900 Mg/Ns Premix) 900 mg in 50 mls @ 100 mls/hr IV.SIG Q8H PIA Lactulose (Lactulose Liq) 30 ml PO DAILY PRN PRN Reason: SEVERE CONSITIPATION Ondansetron HCl (Zofran Inj) 4 mg IV.PUSH Q6H PRN PRN Reason: NAUSEA OR VOMITING Senna/Docusate Sodium (Ashlee-Colace) 1 tab PO BID [facility] Last Admin: 08/20/18 10:07 Dose: Not Given Sennosides (Senokot) 17.2 mg PO Q12H PRN PRN Reason: Moderate Constipation Exam Vital signs: Vital Signs 08/19/18 12:06 08/19/18 16:00 08/20/18 00:00 Temperature 98.1 F 98.6 F 98.3 F Pulse Rate 90 83 89 Respiratory Rate 18 18 16 Blood Pressure 95/55 L 109/64 107/62 Pulse Oximetry 97 98 98 08/20/18 03:19 08/20/18 08:00 Temperature 98.3 F 98.1 F Pulse Rate 77 82 Respiratory Rate 16 20 Blood Pressure 105/60 104/60 Pulse Oximetry 100 98 Intake & Output 08/19/18 08/20/18 08/20/18 18:59 06:59 18:59 Intake Total 100 / 100 410 / 410 Output Total 1100 / 1100 Balance 100 / 100 -690 / -690 Weight 53.5 kg 54.7 kg Intake: IV 100 / 100 50 / 50 Cleocin 900 mg/NS Premix 900 mg 100 / 100 50 / 50 In 50 ml @ 100 mls/hr IV.SIG Q8H [facility] Rx#:[id number] Oral 360 / 360 Output: Urine 1100 / 1100 Other: # Bowel Movements 0 Results - Labs CBC & Chem 7: 08/20/18 03:09 08/20/18 03:09 Labs: Laboratory Results - last 24 hr 08/19/18 08/20/18 08/20/18 09:15 03:09 03:09 WBC 5.8 RBC 4.29 Hgb 12.8 Hct 37.2 MCV 86.7 MCH 29.9 MCHC 34.5 RDW 13.4 Plt Count 159 MPV 9.7 Neut % (Auto) 60.4 Lymph % (Auto) 27.7 [place] % (Auto) 9.3 H Eos % (Auto) 2.0 Baso % (Auto) 0.6 Neut # (Auto) 3.5 Lymph # (Auto) 1.6 [place] # (Auto) 0.5 Eos # (Auto) 0.1 Baso # (Auto) 0.0 WBC Differential . Differential Comment Auto diff final Sodium 141 Potassium 3.9 Chloride 108 H Carbon Dioxide 27.1 Anion Gap 6 BUN 10 Creatinine 0.80 Estimated GFR 84 L Random Glucose 84 Calcium 8.7 Urine Opiates Screen Neg Ur Barbiturates Screen Neg Ur Amphetamines Screen Neg U Benzodiazepines Scrn Neg Urine Cocaine Screen Neg U Cannabinoids Screen Neg Caprini VTE Risk Assessment Caprini Risk Assessment Model: Point Value = 1 Point Value = 2 Point Value = 3 Point Value = 5 Age 41-60 Minor surgery BMI > 25 kg/m2 Swollen legs Varicose veins or History of unexplained or recurrent spontaneous Oral contraceptives or hormone replacement Sepsis (< 1 month) Serious lung disease, including pneumonia (< 1 month) Abnormal pulmonary function Acute myocardial infarction Congestive heart failure (< 1 month) History of inflammatory bowel disease Medical patient at bed rest Age 61-74 Arthroscopic surgery Major open surgery (> 45 min) Laparoscopic surgery (> 45 min) Malignancy Confined to bed (> 72 hours) Immobilizing plaster cast Central venous access Age >= 75 History of VTE Family history of VTE Factor V Leiden Prothrombin [id number] Lupus anticoagulant Anticardiolipin antibodies Elevated serum homocysteine Heparin-induced thrombocytopenia Other congenital or acquired thrombophilia Stroke (< 1 month) Elective arthroplasty Hip, pelvis, or leg fracture Acute spinal cord injury (< 1 month) Prophylaxis Regimen: Total Risk Factor Score Risk Level Prophylaxis Regimen 0-1 Low Early ambulation 2 Moderate Order ONE of the following: *Sequential Compression Device (SCD) *Heparin 5000 units SQ BID 3-4 Higher Order ONE of the following medications: *Heparin 5000 units SQ TID *Enoxaparin/Lovenox 40 mg SQ daily (WT < 150 kg, CrCl > 30 mL/min) *Enoxaparin/Lovenox 30 mg SQ daily (WT < 150 kg, CrCl > 10-29 mL/min) *Enoxaparin/Lovenox 30 mg SQ BID (WT < 150 kg, CrCl > 30 mL/min) AND/OR *Sequential Compression Device (SCD) 5 or more Highest Order ONE of the following medications: *Heparin 5000 units SQ TID (Preferred with Epidurals) *Enoxaparin/Lovenox 40 mg SQ daily (WT < 150 kg, CrCl > 30 mL/min) *Enoxaparin/Lovenox 30 mg SQ daily (WT < 150 kg, CrCl > 10-29 mL/min) *Enoxaparin/Lovenox 30 mg SQ BID (WT < 150 kg, CrCl > 30 mL/min) AND *Sequential Compression Device (SCD) Assessment and Plan - Assessment (1) Periorbital cellulitis of right eye Code(s): L03.213 - Periorbital cellulitis Status: Acute Plan: Patient examined. Assessment and plan formulated with Karishma Cortez PA-C. I agree with the above. Pt interviewed and examined in the CDU (08/19/18). Obvious cellulitis involving right periorbital region and right upper eye lid. Pt had possible allergic reaction after receiving IV vancomycin in ER with itching. Treatment changed to IV clindamycin. Pt previously failed to improve with course of PO ABX: bactrim and then keflex with doxycycline. CT facial bones (08/19/18) --> Right periorbital preseptal soft tissue swelling. Case d/w [facility], Dr. Rusty Rehman. After discussion of the case by phone, Dr. Rehman agreed with current treatment. Pt interviewed and reexamined later in the day in 1402 at 6PM. No worsening in appearance of pt's right, periorbital cellulitis.
[2018-08-19 10:06] LABS: Amphetamine Screen,Urine Neg (Neg); Barbiturate Screen,Urine Neg (Neg); Cannabinoid Screen,Urine Neg (Neg); Cocaine Screen,Urine Neg (Neg)
[2018-08-19 10:15] LABS: Opiate Screen,Urine Neg (Neg)
[2018-08-19] MEDS ORDERED: Acetaminophen 325 MG Tablet PO PRN (18:25)
[2018-08-20 05:22] LABS: Baso % (Auto) 0.6 % (0.0-2.0); Eos # (Auto) 0.1 th/mm3 (0.0-0.4); Hematocrit 37.2 % (35.0-46.0); Hemoglobin 12.8 gm/dL (11.6-15.3); Lymph # (Auto) 1.6 th/mm3 (1.0-4.8); Lymph % (Auto) 27.7 % (9.0-44.0); Mean Corpuscular HGB Conc 34.5 % (32.0-36.0); Mean Corpuscular Hemoglobin 29.9 pg (27.0-34.0); Mean Corpuscular Volume 86.7 fL (80.0-100.0); Mean Platelet Volume 9.7 fL (7.0-11.0); Mono # (Auto) 0.5 th/mm3 (0.0-0.9); Mono % (Auto) 9.3 % (0.0-8.0); Neut # (Auto) 3.5 th/mm3 (1.8-7.7); Neut % (Auto) 60.4 % (16.0-70.0); Platelet Count 159 th/mm3 (150-450); Red Blood Count 4.29 mil/mm3 (4.00-5.30); Red Cell Distribution Width 13.4 % (11.6-17.2); White Blood Count 5.8 th/mm3 (4.0-11.0)
[2018-08-20 05:29] LABS: Calcium 8.7 mg/dL (8.5-10.1); Carbon Dioxide 27.1 meq/L (21.0-32.0); Potassium 3.9 meq/L (3.5-5.1)
[2018-08-20] MEDS: Senna/Docusate Sodium 8.6/50 MG Tablet PO SCH (10:07)
--- NOTE | 2018-08-20 10:29 | P.PNIM ---
Subjective Interval history: No new complaints. Pt feels that redness, discomfort, and swelling surrounding right eye are improving. Pt denies fever or chills. Physical Exam Vital signs: 08/20/18 03:19 08/20/18 08:00 Temperature 98.3 F 98.1 F Pulse Rate 77 82 Respiratory Rate 16 20 Blood Pressure 105/60 104/60 Pulse Oximetry 100 98 Narrative: GENERAL: This is a well-nourished, well-developed patient, in no apparent distress. SKIN/R EYE: Pupils equal round reactive to light and accommodation, extraocular movements intact, significant R periorbital edema and erythema that extends from her right eyelid laterally and involves right eyelid pt's edema and edema appears significantly improved from (08/19/18). Less edema & erythema. CARDIOVASCULAR: Regular rate and rhythm RESPIRATORY: Clear to auscultation. Breath sounds equal bilaterally. GASTROINTESTINAL: Abdomen soft, non-tender, nondistended. Normal active bowel sounds MUSCULOSKELETAL: Extremities without clubbing, cyanosis, or edema. NEURO: Alert & Oriented x4 to person, place, time, situation. Moves all ext x4 Results - Labs CBC & Chem 7: 08/20/18 03:09 08/20/18 03:09 Microbiology 08/18/18 20:45 Eye - Od (Right) Gram Stain - Final 08/18/18 20:45 Eye - Od (Right) Wound Culture - Final S. aureus MRSA 08/18/18 20:45 Blood - Peripheral Aerobic Blood Culture - Preliminary No growth in 1 day 08/18/18 20:45 Blood - Peripheral Anaerobic Blood Culture - Preliminary No growth in 1 day 08/18/18 20:40 Blood - Peripheral Aerobic Blood Culture - Preliminary No growth in 1 day 08/18/18 20:40 Blood - Peripheral Anaerobic Blood Culture - Preliminary No growth in 1 day Assessment and Plan - Assessment (1) Periorbital cellulitis of right eye Code(s): L03.213 - Periorbital cellulitis Status: Acute Plan: - Obvious cellulitis involving right periorbital region and right upper eye lid upon admission - Pt previously failed to improve with course of PO ABX: bactrim and then keflex with doxycycline. - CT facial bones (08/19/18) --> Right periorbital preseptal soft tissue swelling. - Case d/w [facility] Op[facility]mology, Dr. Rusty Rehman. After discussion of the case by phone, Dr. Rehman agreed with current treatment. - Wound Cx (08/18/18) --> MRSA - Pt had possible allergic reaction after receiving IV vancomycin in ER with itching. - Treatment changed to IV clindamycin (08/18 - present) - Pt's right periorbital cellulitis with marked improvement 08/20 - Pt will require additional 1-2 days of IV abx - SCDs for DVT prophylaxis - supportive care.
[2018-08-20] MEDS: Clindamycin 900 mg/NS Premix 900 MG/50 ML PIGGYBACK IV.SIG SCH ×2 (10:45→17:15)
[2018-08-21] MEDS: Clindamycin 900 mg/NS Premix 900 MG/50 ML PIGGYBACK IV.SIG SCH ×3 (01:33→17:07)
[2018-08-21] MEDS: Senna/Docusate Sodium 8.6/50 MG Tablet PO SCH ×3 (01:33→21:20)
[2018-08-22 00:44] VITALS: RESP 18
[2018-08-22] MEDS: Clindamycin 900 mg/NS Premix 900 MG/50 ML PIGGYBACK IV.SIG SCH ×2 (02:09→09:02)
[2018-08-22] MEDS: Senna/Docusate Sodium 8.6/50 MG Tablet PO SCH (08:55)
--- NOTE | 2018-08-22 09:43 | P.PNIM ---
Subjective Interval history: Late charting 08/21 patient seen around 1600 on 08/21 Follow up: Periorbital cellulitis of right eye Patient seen with family at bedside erythema and edema greatly improved patient offers no new concerns/complaints Physical Exam Vital signs: Vital Signs 08/21/18 12:00 08/21/18 16:00 08/21/18 20:00 Temperature 98.2 F 98.3 F 97.9 F Pulse Rate 86 91 H 84 Respiratory Rate 16 16 16 Blood Pressure 103/76 115/69 105/58 L Pulse Oximetry 98 98 100 08/22/18 00:00 08/22/18 04:00 08/22/18 08:00 Temperature 98.3 F 98.0 F 98.2 F Pulse Rate 96 H 76 100 H Respiratory Rate 18 Blood Pressure 119/55 L 125/62 129/56 L Pulse Oximetry 99 100 98 Intake & Output 08/21/18 08/22/18 08/22/18 18:59 06:59 18:59 Intake Total 520 / 520 290 / 290 Balance 520 / 520 290 / 290 Weight 55.8 kg Intake: IV 100 / 100 50 / 50 Cleocin 900 mg/NS Premix 900 mg 100 / 100 50 / 50 In 50 ml @ 100 mls/hr IV.SIG Q8H PIA Rx#:[id number] Oral 420 / 420 240 / 240 Other: # Voids 6 2 Date of Last Bowel Movement 08/18/18 08/18/18 # Bowel Movements 1 Narrative: GENERAL: This is a well-nourished, well-developed patient, in no apparent distress. SKIN/R EYE: Pupils equal round reactive to light and accommodation, extraocular movements intact, much smaller area of R periorbital edema and erythema significantly improved from (08/19/18). CARDIOVASCULAR: Regular rate and rhythm RESPIRATORY: Clear to auscultation. Breath sounds equal bilaterally. GASTROINTESTINAL: Abdomen soft, non-tender, nondistended. Normal active bowel sounds MUSCULOSKELETAL: Extremities without clubbing, cyanosis, or edema. NEURO: Alert & Oriented x4 to person, place, time, situation. Moves all ext x4 Results - Labs CBC & Chem 7: 08/20/18 03:09 08/20/18 03:09 Microbiology 08/18/18 20:45 Blood - Peripheral Aerobic Blood Culture - Preliminary No growth in 3 days 08/18/18 20:45 Blood - Peripheral Anaerobic Blood Culture - Preliminary No growth in 3 days 08/18/18 20:40 Blood - Peripheral Aerobic Blood Culture - Preliminary No growth in 3 days 08/18/18 20:40 Blood - Peripheral Anaerobic Blood Culture - Preliminary No growth in 3 days Assessment and Plan - Assessment (1) Periorbital cellulitis of right eye Code(s): L03.213 - Periorbital cellulitis Status: Acute Plan: - Obvious cellulitis involving right periorbital region and right upper eye lid upon admission - Pt previously failed to improve with course of PO ABX: bactrim and then keflex with doxycycline. - CT facial bones (08/19/18) --> Right periorbital preseptal soft tissue swelling. - Case d/w [facility] Ophthalmology, Dr. Rusty Rehman. After discussion of the case by phone, Dr. Rehman agreed with current treatment. - Wound Cx (08/18/18) --> MRSA - Pt had possible allergic reaction after receiving IV vancomycin in ER with itching. - Treatment changed to IV clindamycin (08/18 - present) - Pt's right periorbital cellulitis with marked improvement - Pt will require and additional day of IV abx - SCDs for DVT prophylaxis - supportive care. Plan to DC tomorrow evening if improvement continues and patient remains stable - Attending Attestation The exam, history, and the medical decision-making described in the above note were completed with the assistance of the mid-level provider. I reviewed and agree with the findings presented. I attest that I had a [id number] encounter with the patient on the same day, and personally performed and documented my assessment and findings in the medical record. Patient examined. Assessment and plan formulated with Karishma Cortez PA-C. I agree with the above.
--- NOTE | 2018-08-22 09:45 | P.DS ---
<Karishma Cortez W - Last Filed: 08/22/18 09:43> Date of admission: 08/19/18 10:52 Primary care physician: Svetlana Temple Attending physician on discharge: Ed Orr Anticipated date of discharge: 08/22/18 Brief History from admission: This is a 32-year-old female patient with past medical history which includes sciatica, vitamin D deficiency and recurrent boils. Patient reports approximately 6 days ago she developed a pimple near her right eye she did try to pop it and since then the eyes become extremely swollen red and painful. Patient went to [facility] at [place] and was prescribed cefazolin 500 mg 4 times daily times 10 days with Bactrim twice daily times 10 days. She is also been using warm compresses. Patient endorses low-grade fever 100.5. Patient was seen by primary care provider Dr. Temple 08/17/2018. Patient continued to have significant periorbital swelling and erythema which extended from the upper right eyelid and several centimeters laterally to the right eye. Antibiotics were switched to Keflex and doxycycline. Patient was rechecked 09/2018 by PCP and referred to emergency department for further evaluation and possibly IV antibiotics. Patient presented to the emergency department 08/18/2018 proximally 9 PM she was started on IV vancomycin and IV clindamycin. Patient unable to tolerate vancomycin, patient reports itching on scalp and back with vancomycin. Patient feels that the area around the eye has gotten, "a little better, " since she arrived last night. Patient reports the right eye area is no longer painful and the edema has decrease slightly. Patient denies changes in vision, blurry vision, double vision, difficulty with eye movement. Patient also denies chills nausea vomiting diarrhea constipation shortness of breath or chest pain PMH: sciatica, vitamin D deficiency and recurrent boils PSxH: Oral surgery for tooth extraction FMH: Reviewed and noncontributory Social history: has 4 children Denies EtOH use denies tobacco use denies illicit drug use Patient update on day of discharge: Patient's periorbital edema and erythema has greatly improved DS: Diagnosis - Discharge Diagnosis (1) Periorbital cellulitis of right eye Status: Acute DS: Medications - Discharge Medications Prescriptions: clindamycin HCl 300 mg PO QID 6 Days #24 cap DS: Summary Hospital Course: - Obvious cellulitis involving right periorbital region and right upper eye lid upon admission - Pt previously failed to improve with course of PO ABX: bactrim and then keflex with doxycycline. - CT facial bones (08/19/18) --> Right periorbital preseptal soft tissue swelling. - Case d/w CP Ophthalmology, Dr. Rusty Rehman. After discussion of the case by phone, Dr. Rehman agreed with current treatment. - Wound Cx (08/18/18) --> MRSA - Pt had possible allergic reaction after receiving IV vancomycin in ER with itching. - Treatment changed to IV clindamycin (08/18 - present) - Pt's right periorbital cellulitis with marked improvement - SCDs for DVT prophylaxis - supportive care. - DC home on PO Clindamycin with follow up with PCP in 1 week - Time Spent with Patient Total time spent providing and/or coordinating discharge services: Greater than 30 minutes - Quality: VTE Deep Vein Thrombosis/Pulmonary Embolism Present on Admission: No Exam Vital signs: Vital Signs 08/21/18 12:00 08/21/18 16:00 08/21/18 20:00 Temperature 98.2 F 98.3 F 97.9 F Pulse Rate 86 91 H 84 Respiratory Rate 16 16 16 Blood Pressure 103/76 115/69 105/58 L Pulse Oximetry 98 98 100 08/22/18 00:00 08/22/18 04:00 08/22/18 08:00 Temperature 98.3 F 98.0 F 98.2 F Pulse Rate 96 H 76 100 H Respiratory Rate 18 18 18 Blood Pressure 119/55 L 125/62 129/56 L Pulse Oximetry 99 100 98 Intake & Output 08/21/18 08/22/18 08/22/18 18:59 06:59 18:59 Intake Total 520 / 520 290 / 290 Balance 520 / 520 290 / 290 Weight 55.8 kg Intake: IV 100 / 100 50 / 50 Cleocin 900 mg/NS Premix 900 mg 100 / 100 50 / 50 In 50 ml @ 100 mls/hr IV.SIG Q8H PIA Rx#:[id number] Oral 420 / 420 240 / 240 Other: # Voids 6 2 Date of Last Bowel Movement 08/18/18 08/18/18 # Bowel Movements 1 Narrative: GENERAL: This is a well-nourished, well-developed patient, in no apparent distress. SKIN/R EYE: Pupils equal round reactive to light and accommodation, extraocular movements intact, much smaller area of R periorbital edema and erythema significantly improved from (08/19/18). CARDIOVASCULAR: Regular rate and rhythm RESPIRATORY: Clear to auscultation. Breath sounds equal bilaterally. GASTROINTESTINAL: Abdomen soft, non-tender, nondistended. Normal active bowel sounds MUSCULOSKELETAL: Extremities without clubbing, cyanosis, or edema. NEURO: Alert & Oriented x4 to person, place, time, situation. Moves all ext x4 Results Procedures completed during hospitalization: none Labs on day of discharge: Preliminary micro results at discharge 08/18/18 20:45 Aerobic Blood Culture - Preliminary Blood - Peripheral No growth in 3 days Anaerobic Blood Culture - Preliminary No growth in 3 days 08/18/18 20:40 Aerobic Blood Culture - Preliminary Blood - Peripheral No growth in 3 days Anaerobic Blood Culture - Preliminary No growth in 3 days - Impressions ITS Impressions Face CT 08/18/18 20:30 CONCLUSION: Right periorbital preseptal soft tissue swelling. <Ed Orr - Last Filed: 08/27/18 11:09> Date of admission: 08/19/18 10:52 Primary care physician: Svetlana Temple DS: Diagnosis - Discharge Diagnosis (1) Periorbital cellulitis of right eye Status: Acute DS: Summary Hospital Course: The exam, history, and the medical decision-making described in the above note were completed with the assistance of the mid-level provider. I reviewed and agree with the findings presented. I attest that I had a grew-dw-lpoe encounter with the patient on the same day, and personally performed and documented my assessment and findings in the medical record. Patient examined. Assessment and plan formulated with Karishma Cortez PA-C. I agree with the above. - Time Spent with Patient Total time spent providing and/or coordinating discharge services: Greater than 30 minutes Results - Impressions ITS Impressions Face CT 08/18/18 20:30 CONCLUSION: Right periorbital preseptal soft tissue swelling. Discharge Plan - Discharge Order Discharge Orders: Discharge Order (Routine); Ordered 08/22/18 Ordered By: Karishma Cortez - Discharge Details Anticipated Discharge Date: 08/22/18 - Physicians Team Primary Care Provider: Svetlana Temple Attending Provider: Ed Orr
[2018-08-22 13:57] VITALS: BP 120/64; PULSE 94; TEMP 97.9; O2SAT 99
[2018-08-22] MEDS ORDERED: Clindamycin 600 mg/NS Premix 600 MG/50 ML PIGGYBACK IV.SIG ONE (15:00)
== END 2018-08-22 16:23 | disposition home or self-care (01) ==
LOC: NEPC 19:02 → INTOOBSV 23:42 → NEDA 23:42 → NEPGCP 08-19 01:54 → N04 08-19 17:17
PROVIDERS: ADMIT Hospitalist; ATTEND Hospitalist